=== PATIENT | female | born 1990 | race African-American/Black ===

== ENCOUNTER 2017-01-20 18:08 | Emergency (ER) | payer OTHER ==
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
[2017-01-20 21:01] VITALS: BP 137/79
== END 2017-01-20 19:15 | disposition home or self-care (01) ==
LOC: ER 18:08
DX: S10.81XA Abrasion of other specified part of neck, initial encounter (principal); S40.012A Contusion of left shoulder, initial encounter; V49.9XXA Car occupant (driver) (passenger) injured in unspecified traffic accident, initial encounter; Y92.411 Interstate highway as the place of occurrence of the external cause
CPT/HCPCS: 70450; 71010; 72125; 99291; G0390